=== PATIENT | male | born 1985 | race African-American/Black ===

== ENCOUNTER 2022-07-03 18:48 | Emergency (ER) | payer SELFPAY ==
[~2022-07-03] VITALS: Ht 175.3 cm; Wt 119.0 kg
[2022-07-03] MEDS ORDERED: ONDANSETRON 4MG/5ML UDC PO ONE (19:45)
[2022-07-03] MEDS ORDERED: ACETAMINOPHEN 325MG TABLET PO ONE (19:45)
[2022-07-03 20:43] LABS: BASOPHILS % 0.6 % (0.0-2.0); EOSINOPHILS % 1.1 % (0.0-5.0); HEMATOCRIT. 46.2 % (42.0-52.0); HEMOGLOBIN. 15.9 g/dL (14.0-18.0); LYMPHOCYTES % 32.8 % (20.0-50.0); MEAN CORPUSCULAR HEMOGLOBIN 32.6 pg (28.0-32.0); MEAN CORPUSCULAR VOLUME 94.9 fL (80.0-94.0); MEAN PLATELET VOLUME 7.4 fl (7.4-10.4); MONOCYTES % 11.1 % (2.0-8.0); NEUTROPHILS % 54.4 % (40.0-76.0); PLATELET 180 x1000/uL (130-400); RED BLOOD CELL COUNT 4.87 mill/uL (4.7-6.1); RED CELL DISTRIBUTION WIDTH 14.8 % (11.6-14.6)
[2022-07-03 20:48] LABS: CHLORIDE 101 mEq/L (98-107)
[2022-07-03 20:49] LABS: CLARITY URINE TURBID (CLEAR); COLOR URINE RED (YELLOW); KETONES URINE NEGATIVE (NEGATIVE); LEUKOCYTE ESTERASE URINE 2+ (NEGATIVE); NITRITE URINE POSITIVE (NEGATIVE); OCCULT BLOOD URINE 2+ (NEGATIVE); PH URINE 6.5 (4.5-8.0); PROTEIN URINE 2+ (NEGATIVE); SPECIFIC GRAVITY URINE 1.021 (1.005-1.030); UROBILINOGEN URINE 0.2 E.U./dL (0.2-1.0)
[2022-07-03] MEDS ORDERED: MORPHINE SULFATE 4 MG/ML CPJ (NOT FOR IM USE) IV ONE ×2 (21:45→22:00)
[2022-07-03] MEDS ORDERED: SODIUM CHLORIDE 0.9% 1,000 ML IV ONE (21:45)
[2022-07-03] MEDS ORDERED: CEFTRIAXONE 1 G PREMIX 50 ML IV ONE (22:00)
[2022-07-03] MEDS ORDERED: ONDANSETRON HCL 4MG/2ML INJ IV ONE (22:00)
[2022-07-03] MEDS ORDERED: HYDROMORPHONE HCL/PF 2MG/ML CPJ IV ONE (22:45)
[2022-07-03] MEDS ORDERED: HYDR-4001 MT (23:44)
[2022-07-03] MEDS ORDERED: CIPR500T5 MT (23:44)
[2022-07-03 23:55] VITALS: BP 134/92
== END 2022-07-04 00:59 | disposition home or self-care (01) ==
LOC: ER 18:48
DX: N39.0 Urinary tract infection, site not specified (principal); R31.0 Gross hematuria; R73.9 Hyperglycemia, unspecified; J98.11 Atelectasis
CPT/HCPCS: 36415; 74176; 80053; 81003; 83690; 85025; 96365; 96375; 99284; J0696; J1170; J2270; J2405; J7030